=== PATIENT | female | born 1965 | race American Indian/Alaskan Native ===

== ENCOUNTER 2017-04-27 07:59 | Outpatient (CLI) | payer OTHER ==
--- NOTE | 2017-04-27 14:36 | Mammography Report ---
BILATERAL DIGITAL SCREENING MAMMOGRAM with CAD: 04/27/17 07:59:00 CLINICAL: Routine screening. COMPARISON:02/22/16 and annual mammograms going back to 10/18/11 FINDINGS: The breasts are heterogeneously dense, which may obscure small masses. A left asymmetry on MLO view requires additional imaging.No architectural distortion or suspicious calcifications.The right breast is negative. IMPRESSION: Left asymmetry requiring further workup. BI-RADS CATEGORY: 0 -- Additional Imaging Evaluation Required RECOMMENDATION: Recall for a left MLO spot compression view and left breast ultrasound if needed. ACR BI-RADS MAMMOGRAPHIC CODES: 0 = Needs additional imaging evaluation; 1 = Negative; 2 = Benign; 3 = Probably benign; 4 = Suspicious; 5 = Malignant; 6 = Known biopsy-proven malignancy COMMENT: 1. Dense breast tissue, i.e., adenosis, fibrocystic changes, etc., may obscure an underlying neoplasm. 2. Approximately 10% of cancers are not detected with mammography. 3. A negative mammography report should not delay biopsy if a clinically suspicious mass is present. COMMENT: Patient follow-up letters are generated via our [email or web address] application.
== END 2017-04-27 08:00 | disposition home or self-care (01) ==
LOC: SPVWC 07:59
PROVIDERS: ATTEND Family Medicine
DX: Z12.31 Encounter for screening mammogram for malignant neoplasm of breast (principal)
CPT/HCPCS: 77067; G0202

== ENCOUNTER 2017-05-31 15:31 | Outpatient (CLI) | payer OTHER ==
--- NOTE | 2017-05-31 16:13 | Mammography Report ---
LEFT DIGITAL DIAGNOSTIC MAMMOGRAM and LEFT BREAST ULTRASOUND: 05/31/17 15:31:00 CLINICAL: Recalled for asymmetry. COMPARISON:04/27/17 screening FINDINGS: Lateralmedial and spot compression MLO views were performed. A 7 mm asymmetry is identified on the lateral view just inferior to the nipple line and is demonstrates partial effacement with spot compression. Ultrasound of the lower left breast was performed and demonstrated normal fibroglandular and fatty structures. No mass, cyst or shadowing to correlate with the mammographic density. IMPRESSION: A probably benign mammographic asymmetry identified only onlateral and MLO views with a negative ultrasound. BI-RADS CATEGORY: 3 - - Probably Benign RECOMMENDATION: Six month followup left mammogram. ACR BI-RADS MAMMOGRAPHIC CODES: 0 = Needs additional imaging evaluation; 1 = Negative; 2 = Benign; 3 = Probably benign; 4 = Suspicious; 5 = Malignant; 6 = Known biopsy-proven malignancy COMMENT: 1. Dense breast tissue, i.e., adenosis, fibrocystic changes, etc., may obscure an underlying neoplasm. 2. Approximately 10% of cancers are not detected with mammography. 3. A negative mammography report should not delay biopsy if a clinically suspicious mass is present. COMMENT: Patient follow-up letters are generated via our [employer] application.
== END 2017-05-31 15:32 | disposition home or self-care (01) ==
LOC: SPVWC 15:31
PROVIDERS: ATTEND Family Medicine
DX: N64.89 Other specified disorders of breast (principal)
CPT/HCPCS: 76642; G0206

== ENCOUNTER 2017-11-28 08:18 | Outpatient (CLI) | payer BC ==
--- NOTE | 2017-11-29 08:45 | Ultrasound Report ---
LEFT DIGITAL DIAGNOSTIC MAMMOGRAM and LEFT BREAST ULTRASOUND: 11/28/17 08:18:00 CLINICAL: Six month followup asymmetry. COMPARISON:05/31/17 mammogram and left breast ultrasound FINDINGS: Routine views plus spot magnification MLO and CC views were performed. The previously described partially circumscribed retroareolar asymmetry on the MLO view is slightly larger but demonstrates partial effacement on spot magnification view. Cc views are negative. Ultrasound of the left breast (including all four quadrants and the retroareolar area) was performed. An oval benign anechoic cyst at 7 o'clock 7 cm from the nipple measures 5 x 3 x 2 mm and appears to correlate with the mammographic density. IMPRESSION: A benign 5 mm cyst at 7 o'clock 7 cm from the nipple. BI-RADS CATEGORY: 2 - - Benign RECOMMENDATION: Return to routine mammographic screening with a bilateral screening mammogram in late April of 2018. ACR BI-RADS MAMMOGRAPHIC CODES: 0 = Needs additional imaging evaluation; 1 = Negative; 2 = Benign; 3 = Probably benign; 4 = Suspicious; 5 = Malignant; 6 = Known biopsy-proven malignancy COMMENT: 1. Dense breast tissue, i.e., adenosis, fibrocystic changes, etc., may obscure an underlying neoplasm. 2. Approximately 10% of cancers are not detected with mammography. 3. A negative mammography report should not delay biopsy if a clinically suspicious mass is present. COMMENT: Patient follow-up letters are generated via our [email or web address] application.
== END 2017-11-28 08:19 | disposition home or self-care (01) ==
LOC: SPVWC 08:18
PROVIDERS: ATTEND Family Medicine
DX: N60.02 Solitary cyst of left breast (principal)